=== PATIENT | female | born 1955 | race Caucasian/White ===

== ENCOUNTER 2016-10-31 11:34 | Day surgery (SDC) | payer OTHER ==
[~2016-10-31] VITALS: Ht 170.2 cm; Wt 64.1 kg
[~2016-10-31 11:34] MED LIST: AMLO10 PO; ATOR10TA15 PO; CLIN1CAP6 PO; FISH100020 PO; FLUT50SP EACH NARE; LACTATED RINGER'S 1000 ML INJ 1,000 ML IV ONE; LEVO88TA2 PO; LISI-515 PO; METF-382 PO; MULT1TAB46 PO; MUPI2OIN TOPICAL; NEOSTIGMINE 3 MG/3 ML SYR IV ONE; ONDANSETRON HCL 4 MG/2 ML VIAL IV PUSH ONE; PHENYLEPH/NS 1000 MCG/10 ML SYR IV ONE; PROM25TA10 PO; PROPOFOL 200 MG/20 ML AMP IV ONE; TRAM50TA PO; ePHEDrine/NS 25 MG/5 ML SYR IV ONE
[2016-10-31 12:13] VITALS: BP 141/79; PULSE 78; RESP 20; TEMP 98.6; O2SAT 99
[2016-10-31 12:45] LABS: AUTOMATED NEUTROPHIL # 4.1 TH/MM3 (1.8-7.7); BASOPHIL % 0.5 % (0.0-2.0); EOSINOPHIL # 0.3 TH/MM3 (0-0.4); EOSINOPHIL % 3.7 % (0.0-4.0); HEMATOCRIT 37.7 % (35.0-46.0); HEMO FLAGS DIFF FINAL; LYMPH % 29.6 % (9.0-44.0); LYMPHOCYTE # 2.1 TH/MM3 (1.0-4.8); MEAN CELL VOLUME 82.6 FL (80.0-100.0); MEAN CORPUSCULAR HEMOGLOBIN 28.2 PG (27.0-34.0); MEAN CORPUSCULAR HGB CONC 34.2 % (32.0-36.0); NEUT % 59.2 % (16.0-70.0); PLATELET COUNT 275 TH/MM3 (150-450); RED BLOOD COUNT 4.56 MIL/MM3 (4.00-5.30); RED CELL DISTRIBUTION WIDTH 13.8 % (11.6-17.2); WHITE BLOOD COUNT 6.9 TH/MM3 (4.0-11.0)
[2016-10-31] MEDS ORDERED: LACTATED RINGER'S 1000 ML IV PRN (13:45)
[2016-10-31] MEDS ORDERED: POVIDONE IODINE 5% (ANTISEPSIS KIT) 4 APPLICATIONS EACH NARE PRN (13:45)
[2016-10-31] MEDS ORDERED: INSULIN HUMAN REGULAR 1,000 UNITS/10 ML VIAL SQ PRN (13:45)
[2016-10-31] MEDS ORDERED: METOPROLOL TARTRATE 25 MG TAB PO PRN (13:45)
[2016-10-31] MEDS ORDERED: SODIUM CHLORID 0.9% 500 ML IV PRN (13:45)
[2016-10-31] MEDS ORDERED: CHLORHEXIDINE GLUCONATE 2 % 1 PACK (2 CLOTHS) TOPICAL PRN (13:45)
[2016-10-31] MEDS ORDERED: OXYMETAZOLINE HCL 0.05% 15 ML NASAL SPRAY ONE (13:50)
[2016-10-31] MEDS ORDERED: BUPIVACAINE/EPINEPHRINE 0.5% PF 10 ML VIAL ONE (13:50)
[2016-10-31] MEDS ORDERED: BACITRACIN TOP OINT 15 GM TUBE ONE (13:51)
[2016-10-31] MEDS ORDERED: MIDAZOLAM HCL 2 MG/2 ML VIAL ONE ×3 (14:35→18:23)
[2016-10-31] MEDS ORDERED: DEXAMETHASONE SOD PHOS 4 MG/ML VIAL ONE (14:35)
[2016-10-31] MEDS ORDERED: FAMOTIDINE 20 MG/2 ML VIAL ONE (14:35)
[2016-10-31] MEDS ORDERED: fentaNYL CITRATE 250 MCG/5 ML AMP ONE ×2 (15:21→19:28)
[2016-10-31] MEDS ORDERED: DO NOT ADM ANY ANTICOAGULANT DRUGS PRN (18:17)
[2016-10-31] MEDS ORDERED: *morphine SULFATE 8 MG/ML PERIprocedure ONLY ONE ×3 (18:22→18:43)
[2016-10-31] MEDS ORDERED: *HYDROmorphone PF 1 MG VIAL PERIprocedural Use ONLY ONE (19:13)
[2016-10-31] MEDS ORDERED: ULTR50TA5 PO (19:29)
[2016-10-31 19:45] VITALS: BP 145/74; PULSE 76; RESP 11; TEMP 97.8; O2SAT 95
[2016-10-31] MEDS ORDERED: ONDANSETRON HCL 4 MG/2 ML VIAL ONE (20:06)
[2016-10-31] MEDS ORDERED: ONDANSETRON ODT 4 MG TAB PO PRN (20:30)
[2016-10-31] MEDS ORDERED: ONDANSETRON HCL 4 MG/2 ML VIAL IV PUSH PRN (20:30)
[2016-10-31] MEDS ORDERED: ACETAMINOPHEN/HYDROcodone 325 MG/5 MG TAB PO PRN (20:30)
--- NOTE | 2016-11-06 15:56 | MP ---
cc: STUART HANSEN MD DATE OF SURGERY: 10/31/2016 DATE OF : 1955 PREOPERATIVE DIAGNOSIS Chronic sinusitis, nasal obstruction. POSTOPERATIVE DIAGNOSIS Chronic sinusitis, nasal obstruction. SURGERY PERFORMED Right maxillary antrostomy with tissue removal, right frontal sinus exploration with tissue removal, right ethmoidectomy, right nasal polypectomy, open septal reconstruction, turbinoplasty submucous, bilaterally. FINDINGS Right nasal ethmoid polyp sent for pathology, right maxillary polyps and pus with tissue sent for pathology and cultures, nasal septal deviation to the right, inferior turbinate hypertrophy. SPECIMEN Maxillary and ethmoid sinus tissue. IMPLANTS Stammberger dressing and Telfa packs. COMPLICATIONS None. DISPOSITION To PACU in stable condition. INDICATIONS FOR SURGERY The patient is a pleasant 61-year-old female with chronic sinusitis, nasal obstruction refractory to maximal medical therapy to include antibiotic, steroids, antihistamines, decongestants. The patient also had severe septal deviation. These were all confirmed with endoscopic examination as well as CAT scan consistent with opacification of the right side of the sinuses. Thus, it was elected to proceed with surgery for the above. DESCRIPTION OF SURGERY After informed consent was obtained, the patient was brought to the main operating room where she underwent general endotracheal anesthesia. Head was turned 90 degrees in preparation for surgery. Cottonoid pledgets were impregnated with Afrin and inserted into the patient's nasal cavity bilaterally. After approximately 5 minutes, 10 mL of 0.5% Marcaine with epinephrine 1:200,000 was injected into the patient's septum and throughout the patient's lateral nasal sidewalls and turbinates. The patient is now prepped and draped in standard fashion for nasal surgery. After approximately 10 minutes video equipment was brought into the field. Using video assisted endoscopic guidance the nose was carefully examined. The findings were as previously noted. The septum was addressed, specifically a left kenna-transfixion incision was made. Mucoperichondrial flaps were raised on the left side of the septum ____ 1 cm edge, dissection was done on the contralateral side of the septum and the ____ septal cartilage was removed or repositioned. Once the septum was noted to be towards the midline, kenna-transfixion incision was closed with 4-0 Chromic and a whipstitch was used to coapt the septum. The inferior turbinates were addressed at this point ____ small incision was made in the left inferior turbinate at the anterior aspect and dissection was made overlying the bone and under the tissue of the inferior turbinate and microdebrider was used to micro-debride turbinate tissue sparing the mucosal edge, inferior turbinate was then outfractured thereby greatly enlarging the airway. The right inferior turbinate was addressed in similar fashion with submucous dissection followed by microdebrider to decrease the size of inferior turbinate and this was followed by inferior turbinate outfracture on the right. Endoscope was used to visualize nasopharynx. Using video assisted endoscopic guidance the endoscope was placed in the right frontal sinus and the guidewire was placed and the right frontal sinus was entered and right frontal sinus was opened with a combination of balloon sinuplasty, tissue removal was done with sharp instrumentation with microdebrider and upbiting forceps to remove polyp tissue and open the airway. Right ethmoidectomy was performed at this point. This was done with microdebrider and Blakesley forceps. Care was taken to avoid violation of the medial orbital wall and the skull base. Nasal polypectomy was done on the right side removing polyp tissue on the right ethmoid and right maxillary sinus. This was sent for pathology. The right maxillary antrostomy with tissue removal was performed. This was done with a combination of maxillary sinus ____ as well as maxillary suction and microdebrider to further enlarge right maxillary sinus. There was a large amount of thick mucoid purulent debris that was aspirated from the right maxillary sinus and sent for pathology and cultures and sensitivity. Maxillary sinus was further irrigated of contents with saline ____. The patient tolerated the procedure well. After the right sinuses were noted to be widely open, at this point, the patient had nasopharynx suctioned dry. Stammberger dressing was placed lateral to the middle turbinate and Telfa packs were placed underneath the patient's nose and secured underneath the nose with a suture. There were no complications. Stuart Hansen MD CCP/TLL /3:57 PM /3:27 PM
== END 2016-10-31 20:15 | disposition home or self-care (01) ==
LOC: HSDC 11:34
PROVIDERS: ATTEND Otolaryngology Otolaryngology/Facial Plastic Surgery
DX: J32.4 Chronic pansinusitis (principal); J34.89 Other specified disorders of nose and nasal sinuses; J34.3 Hypertrophy of nasal turbinates; J34.2 Deviated nasal septum; J33.8 Other polyp of sinus; Z01.818 Encounter for other preprocedural examination
CPT/HCPCS: 00160; 30140; 30520; 31254; 31267; 31276; 85025; 87015; 87070; 87102; 87116; 87205; 87206; 88304; J1100; J1170; J2250; J2270; J2370; J2405; J2710; J3010; J7120; 88300; C1887